=== PATIENT | female | born 1990 | race Caucasian/White ===

== ENCOUNTER 2018-09-21 14:22 | Emergency (ER) | payer SELFPAY ==
[~2018-09-21] VITALS: Ht 175.3 cm; Wt 60.8 kg
--- NOTE | 2018-09-21 14:34 | NUR ---
Pt came in from home, walked in due to right arm numbness since this morning. Hx of stroke Jun 2017 and SZ since jul 2018. Pt is able to raise bilateral arm and able to smile symmetry. AOx4, VSS at this time. Monitor attached. Will cont to monitor.
--- NOTE | 2018-09-21 14:34 | NUR ---
ED Nurse Note: Pt had a syncopal episode this morning, no head trauma, ERMD aware.
[2018-09-21 14:39] VITALS: BP 130/84
[2018-09-21] MEDS ORDERED: Sodium Chloride 500ML 500 ML IV ONE (15:09)
[2018-09-21] MEDS ORDERED: MELATONIN10 M4 PO (15:11)
[2018-09-21] MEDS ORDERED: BUSPAR10 MG ORAL (15:11)
[2018-09-21] MEDS ORDERED: KEPPRA1000 MG ORAL (15:11)
[2018-09-21] MEDS ORDERED: ASPIR 8181 MG ORAL (15:11)
[2018-09-21] MEDS ORDERED: ABILIFY10 MG ORAL (15:11)
[2018-09-21] MEDS ORDERED: TRAZODONE HCL150 MG ORAL (15:11)
[2018-09-21] MEDS ORDERED: VISTARIL25 M1 PO (15:11)
[2018-09-21] MEDS ORDERED: SERTRALINE HCL100 MG PO (15:11)
[2018-09-21] MEDS ORDERED: FOLIC ACID1 M1 PO (15:11)
--- NOTE | 2018-09-21 15:26 | NUR ---
ED Nurse Note: Blood drawn and sent to lab.
[2018-09-21 15:33] LABS: BASOPHILS % (AUTO) 2.2 % (0.0-2.0); EOSINOPHILS % (AUTO) 0.6 % (0.0-3.0); HEMATOCRIT 38.6 % (37.0-47.0); HEMOGLOBIN 13.1 G/DL (12.0-16.0); LYMPHOCYTES % (AUTO) 33.7 % (20.0-45.0); MEAN CORPUSCULAR VOLUME 92 FL (80-99); MONOCYTES % (AUTO) 14.8 % (1.0-10.0); NEUTROPHILS % (AUTO) 48.7 % (45.0-75.0); PLATELET COUNT 149 K/UL (150-450); RED BLOOD COUNT 4.18 M/UL (4.20-5.40); RED CELL DISTRIBUTION WIDTH 11.2 % (11.6-14.8); WHITE BLOOD COUNT 3.8 K/UL (4.8-10.8)
[2018-09-21 15:48] LABS: ANION GAP 13 mmol/L (5-15); BLOOD UREA NITROGEN 10 mg/dL (7-18); CALCIUM 8.7 MG/DL (8.5-10.1); CARBON DIOXIDE 22 MMOL/L (21-32); CHLORIDE 104 MMOL/L (98-107); CREATININE 0.8 MG/DL (0.55-1.30); POTASSIUM 3.8 MMOL/L (3.5-5.1); SODIUM 139 MMOL/L (136-145)
--- NOTE | 2018-09-21 15:48 | Emergency Room Report ---
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 Allergies: Coded Allergies: SULFAMETHOXAZOLE (Verified Allergy, Unknown, Hives, 09/21/18) TRIMETHOPRIM (Verified Allergy, Unknown, Hives, 09/21/18) Patient History Past Medical History: see triage record Pertinent Family History: none Reviewed Nursing Documentation: PMH: Agreed; PSxH: Agreed Nursing Documentation-PMH Past Medical History: No History, Except For Hx Cerebrovascular Accident: Yes - Jun 2017 Hx Seizures: Yes - Jul 2018 Review of Systems All Other Systems: negative except mentioned in HPI Physical Exam Vital Signs Date Time Temp Pulse Resp B/P (MAP) Pulse Ox O2 Delivery O2 Flow Rate FiO2 09/21/18 14:28 98.2 98 13 130/84 100 Room Air Sp02 EP Interpretation: reviewed, normal General Appearance: no apparent distress Head: normocephalic, atraumatic Eyes: bilateral eye PERRL, bilateral eye EOMI ENT: normal pharynx, no angioedema Neck: supple Respiratory: lungs clear Cardiovascular #1: regular rate, rhythm, no edema Gastrointestinal: non tender, soft Musculoskeletal: other - Contracted right hand, decreased movement of the right side Neurologic: alert, oriented x3, responsive Skin: normal color Lymphatic: no adenopathy Medical Decision Making Diagnostic Impression: Primary Impression: Syncope Additional Impression: QT prolongation ER Course Given the patient's history and presentation multiple differentials are considered EKG shows a mildly prolonged QT Given the patient's medications this is concerning for possible effect on this Also given the patient's syncopal episode described During her visit patient remains awake and alert Remains hemodynamically stable Patient requires improved outpatient care Reports that she is from [place] and is at a rehabilitation facility Further outpatient referrals are made and patient will return with any changes Labs Test 09/21/18 14:30 White Blood Count 3.8 K/UL (4.8-10.8) Red Blood Count 4.18 M/UL (4.20-5.40) Hemoglobin 13.1 G/DL (12.0-16.0) Hematocrit 38.6 % (37.0-47.0) Mean Corpuscular Volume 92 FL (80-99) Mean Corpuscular Hemoglobin 31.4 PG (27.0-31.0) Mean Corpuscular Hemoglobin Concent 34.0 G/DL (32.0-36.0) Red Cell Distribution Width 11.2 % (11.6-14.8) Platelet Count 149 K/UL (150-450) Mean Platelet Volume 8.3 FL (6.5-10.1) Neutrophils (%) (Auto) 48.7 % (45.0-75.0) Lymphocytes (%) (Auto) 33.7 % (20.0-45.0) Monocytes (%) (Auto) 14.8 % (1.0-10.0) Eosinophils (%) (Auto) 0.6 % (0.0-3.0) Basophils (%) (Auto) 2.2 % (0.0-2.0) Sodium Level 139 MMOL/L (136-145) Potassium Level 3.8 MMOL/L (3.5-5.1) Chloride Level 104 MMOL/L (98-107) Carbon Dioxide Level 22 MMOL/L (21-32) Anion Gap 13 mmol/L (5-15) Blood Urea Nitrogen 10 mg/dL (7-18) Creatinine 0.8 MG/DL (0.55-1.30) Estimat Glomerular Filtration Rate > 60 mL/min (>60) Glucose Level 91 MG/DL (74-106) Calcium Level 8.7 MG/DL (8.5-10.1) Total Bilirubin 0.3 MG/DL (0.2-1.0) Aspartate Amino Transf (AST/SGOT) 24 U/L (15-37) Alanine Aminotransferase (ALT/SGPT) 24 U/L (12-78) Alkaline Phosphatase 63 U/L (46-116) Total Creatine Kinase 91 U/L (26-308) Creatine Kinase MB 0.6 NG/ML (0.0-3.6) Creatine Kinase MB Relative Index 0.6 Total Protein 7.3 G/DL (6.4-8.2) Albumin 4.0 G/DL (3.4-5.0) Globulin 3.3 g/dL Albumin/Globulin Ratio 1.2 (1.0-2.7) EKG Diagnostic Results Rate: normal Rhythm: NSR ST Segments: other - Elongated QT corrected Rhythm Strip Diag. Results EP Interpretation: yes Rate: 66 Rhythm: NSR, no PVC's, no ectopy Last Vital Signs Date Time Temp Pulse Resp B/P (MAP) Pulse Ox O2 Delivery O2 Flow Rate FiO2 09/21/18 14:39 98 13 Room Air 09/21/18 14:39 98.2 130/84 100 Status: improved Disposition: HOME, SELF-CARE Condition: Improved Additional Instructions: Patient is provided with the discharge instructions notified to follow up with primary doctor in the next 2-3 days otherwise return to the er with any worsening symptoms. Please note that this report is being documented using [employer] technology. This can lead to erroneous entry secondary to incorrect interpretation by the dictating instrument. Daphne Elliott DO Sep 21, 2018 15:48
[2018-09-21 16:02] LABS: ALANINE AMINOTRANSFERASE 24 U/L (12-78); ALBUMIN/GLOBULIN RATIO 1.2 (1.0-2.7); ALKALINE PHOSPHATASE 63 U/L (46-116); ASPARTATE AMINO TRANSFERASE 24 U/L (15-37); BILIRUBIN,TOTAL 0.3 MG/DL (0.2-1.0); CKMB 0.6 NG/ML (0.0-3.6); CREATINE KINASE 91 U/L (26-308)
[2018-09-21 16:11] VITALS: BP 129/79
[2018-09-21 17:27] VITALS: BP 125/76
--- NOTE | 2018-09-21 17:29 | NUR ---
ED Nurse Note: Pt is clear to be discharged by ERMD. Discharge paper given, pt verbalized understanding of discharge instruction. AOx4, VSS. Wristband and IV line removed. Pt ambulated out with steady gait with all belongings.
[2018-09-21 17:30] VITALS: BP 125/76
== END 2018-09-21 17:30 | disposition home or self-care (01) ==
LOC: EMR 15:46
DX: R55 Syncope and collapse (principal); I45.81 Long QT syndrome; Z86.73 Personal history of transient ischemic attack (TIA), and cerebral infarction without residual deficits; Z86.69 Personal history of other diseases of the nervous system and sense organs; Z88.2 Allergy status to sulfonamides
CPT/HCPCS: 36415; 80053; 82550; 82553; 85025; 93005; 99284

== ENCOUNTER 2018-10-07 12:44 | Inpatient (IN) | payer SELFPAY ==
[~2018-10-07] VITALS: Ht 175.3 cm; Wt 63.5 kg
[~2018-10-07 12:44] MED LIST: ABILIFY10 MG ORAL; ASPIR 8181 MG ORAL; BUSPAR10 MG ORAL; FOLIC ACID1 M1 PO; KEPPRA1000 MG ORAL; MELATONIN10 M4 PO; SERTRALINE HCL100 MG PO; TRAZODONE HCL150 MG ORAL; VISTARIL25 M1 PO
--- NOTE | 2018-10-07 12:51 | NUR ---
ED Nurse Note: patient came in by walking, c/o chest pain and palptation since this morning. patient reports that she is in rehab program "breathe" ambulatory steady gait, patient attached to the monitor.
[2018-10-07 13:23] VITALS: BP 113/85
[2018-10-07 13:35] LABS: APPEARANCE,URINE CLEAR; BILIRUBIN, URINE NEGATIVE (NEGATIVE); COLOR,URINE PALE YELLOW; GLUCOSE, URINE (UA) NEGATIVE (NEGATIVE); KETONES,URINE NEGATIVE (NEGATIVE); LEUKOCYTE ESTERASE ,URINE 1+ (NEGATIVE); NITRITE,URINE NEGATIVE (NEGATIVE); PH,URINE 7 (4.5-8.0); PROTEIN,URINE NEGATIVE (NEGATIVE); UROBILINOGEN,URINE NORMAL MG/DL (0.0-1.0)
[2018-10-07 13:40] LABS: BASOPHILS % (AUTO) 1.4 % (0.0-2.0); EOSINOPHILS % (AUTO) 1.9 % (0.0-3.0); HEMATOCRIT 41.9 % (37.0-47.0); LYMPHOCYTES % (AUTO) 26.7 % (20.0-45.0); MEAN CORPUSCULAR VOLUME 93 FL (80-99); NEUTROPHILS % (AUTO) 65.1 % (45.0-75.0); PLATELET COUNT 357 K/UL (150-450); RED BLOOD COUNT 4.53 M/UL (4.20-5.40); WHITE BLOOD COUNT 7.6 K/UL (4.8-10.8)
[2018-10-07 13:45] LABS: ANION GAP 9 mmol/L (5-15); BLOOD UREA NITROGEN 15 mg/dL (7-18); CALCIUM 9.3 MG/DL (8.5-10.1); CARBON DIOXIDE 29 MMOL/L (21-32); CHLORIDE 102 MMOL/L (98-107); CREATININE 0.7 MG/DL (0.55-1.30); POTASSIUM 3.8 MMOL/L (3.5-5.1); SODIUM 140 MMOL/L (136-145)
[2018-10-07 14:01] LABS: ALANINE AMINOTRANSFERASE 46 U/L (12-78); ALBUMIN 4.4 G/DL (3.4-5.0); ALBUMIN/GLOBULIN RATIO 1.4 (1.0-2.7); ALKALINE PHOSPHATASE 71 U/L (46-116); ASPARTATE AMINO TRANSFERASE 25 U/L (15-37); BILIRUBIN,TOTAL 0.2 MG/DL (0.2-1.0); CKMB 1.1 NG/ML (0.0-3.6); CREATINE KINASE 73 U/L (26-308)
--- NOTE | 2018-10-07 14:26 | Emergency Room Report ---
History of Present Illness General Chief Complaint: Chest Pain Source: Patient, Medical Record Present Illness HPI 28-year-old female presents ED for evaluation. Patient states that this morning she experienced her heart racing with some chest pressure. Started this morning. Comes and goes lasting for a few seconds. States she noticed some pressure to the middle of her chest at this time. Denies any shortness of breath. Denies pain. Denies drug use. States she is here in [place] at a alcohol rehabilitation facility. States she has history of anxiety. States that she does have history of CVA because of a PFO. States that was repaired in [facility]. Does not have a PMD here. No other aggravating relieving factors. Denies any other associated symptoms Allergies: Coded Allergies: SULFAMETHOXAZOLE (Verified Allergy, Unknown, Hives, 09/21/18) TRIMETHOPRIM (Verified Allergy, Unknown, Hives, 09/21/18) Patient History Past Medical History: CVA/TIA, seizures, psych hx Past Surgical History: other - PFO Pertinent Family History: none Social History: Denies: smoking, alcohol use, drug use Last Menstrual Period: IUD Now: No Immunizations: UTD Reviewed Nursing Documentation: PMH: Agreed; PSxH: Agreed Nursing Documentation-PMH Past Medical History: No History, Except For Hx Cardiac Problems: Yes - valve replacement 2018 History Of Psychiatric Problem: No - eating disorder, alcohol abuse Hx Cerebrovascular Accident: Yes - Jun 2017 Hx Seizures: Yes - Jul 2018 Review of Systems All Other Systems: negative except mentioned in HPI Physical Exam Vital Signs Date Time Temp Pulse Resp B/P (MAP) Pulse Ox O2 Delivery O2 Flow Rate FiO2 10/07/18 12:45 98.2 94 18 113/85 96 Room Air Sp02 EP Interpretation: reviewed, normal General Appearance: alert, GCS 15, non-toxic, thin Head: normocephalic, atraumatic Eyes: bilateral eye normal inspection, bilateral eye PERRL ENT: hearing grossly normal, normal pharynx, no angioedema, normal voice Neck: full range of motion, supple/symm/no masses Respiratory: chest non-tender, lungs clear, normal breath sounds, speaking full sentences Cardiovascular #1: regular rate, rhythm, no edema Cardiovascular #2: 2+ carotid (R), 2+ carotid (L), 2+ radial (R), 2+ radial (L) , 2+ dorsalis pedis (R), 2+ dorsalis pedis (L) Gastrointestinal: normal bowel sounds, non tender, soft, non-distended, no guarding, no rebound Rectal: deferred Genitourinary: normal inspection, no CVA tenderness Musculoskeletal: back normal, gait/station normal, normal range of motion, non- tender Neurologic: alert, oriented x3, responsive, motor strength/tone normal, sensory intact, speech normal Psychiatric: judgement/insight normal, memory normal, no suicidal/homicidal ideation, anxious Reflexes: 3+ bicep (R), 3+ bicep (L), 3+ tricep (R), 3+ tricep (L), 3+ knee (R) , 3+ knee (L) Skin: normal color, no rash, warm/dry, well hydrated Lymphatic: no adenopathy Medical Decision Making Diagnostic Impression: Primary Impression: ACS (acute coronary syndrome) Additional Impression: Palpitations ER Course Hospital Course 28 yo F presents with episode of palpitations, chest pain since this morning Differential diagnoses include: MN/unstable angina, contusion, muscle strain, PTX, rib fracture Clinical course Patient placed on stretcher. on secured entrance monitor. After initial history and physical I ordered labs, EKG, chest x-ray labs reviewed- no leukocytosis, hb/hct stable, electrolytes ok, trop 0.029 EKG - NSR, no acute ischemic changes interpreted by me Chest x-ray- no acute process Discussed with patient. Given history of CVA and PFO patient would benefit from observation and serial troponins. Aspirin given Case discussed with Dr. Sánchez and he agreed to accept the patient to his service for further care and support I. I feel this is a highly complex case requiring extensive working including EKG/Rhythm strip, Xray/CT/US, Blood/urine lab work, repeat exams while in ED, and administration of strong opiates/narcotics for pain control, admission to hospital or close patient follow up. Diagnosis - ACS, palpitations admitted to telemetry in serious condition Labs Test 10/07/18 13:18 White Blood Count 7.6 K/UL (4.8-10.8) Red Blood Count 4.53 M/UL (4.20-5.40) Hemoglobin 14.0 G/DL (12.0-16.0) Hematocrit 41.9 % (37.0-47.0) Mean Corpuscular Volume 93 FL (80-99) Mean Corpuscular Hemoglobin 31.0 PG (27.0-31.0) Mean Corpuscular Hemoglobin Concent 33.4 G/DL (32.0-36.0) Red Cell Distribution Width 11.0 % (11.6-14.8) Platelet Count 357 K/UL (150-450) Mean Platelet Volume 7.3 FL (6.5-10.1) Neutrophils (%) (Auto) 65.1 % (45.0-75.0) Lymphocytes (%) (Auto) 26.7 % (20.0-45.0) Monocytes (%) (Auto) 5.0 % (1.0-10.0) Eosinophils (%) (Auto) 1.9 % (0.0-3.0) Basophils (%) (Auto) 1.4 % (0.0-2.0) Urine Color Pale yellow Urine Appearance Clear Urine pH 7 (4.5-8.0) Urine Specific [place] 1.010 (1.005-1.035) Urine Protein Negative (NEGATIVE) Urine Glucose (UA) Negative (NEGATIVE) Urine Ketones Negative (NEGATIVE) Urine Blood Negative (NEGATIVE) Urine Nitrite Negative (NEGATIVE) Urine Bilirubin Negative (NEGATIVE) Urine Urobilinogen Normal MG/DL (0.0-1.0) Urine Leukocyte Esterase 1+ (NEGATIVE) Urine RBC 0-2 /HPF (0 - 2) Urine WBC 2-4 /HPF (0 - 2) Urine Squamous Epithelial Cells Occasional /LPF Urine Bacteria Few /HPF (NONE) Urine HCG, Qualitative Negative (NEGATIVE) Sodium Level 140 MMOL/L (136-145) Potassium Level 3.8 MMOL/L (3.5-5.1) Chloride Level 102 MMOL/L (98-107) Carbon Dioxide Level 29 MMOL/L (21-32) Anion Gap 9 mmol/L (5-15) Blood Urea Nitrogen 15 mg/dL (7-18) Creatinine 0.7 MG/DL (0.55-1.30) Estimat Glomerular Filtration Rate > 60 mL/min (>60) Glucose Level 88 MG/DL (74-106) Calcium Level 9.3 MG/DL (8.5-10.1) Total Bilirubin 0.2 MG/DL (0.2-1.0) Aspartate Amino Transf (AST/SGOT) 25 U/L (15-37) Alanine Aminotransferase (ALT/SGPT) 46 U/L (12-78) Alkaline Phosphatase 71 U/L (46-116) Total Creatine Kinase 73 U/L (26-308) Creatine Kinase MB 1.1 NG/ML (0.0-3.6) Creatine Kinase MB Relative Index 1.5 Troponin I 0.029 ng/mL (0.000-0.056) Total Protein 7.6 G/DL (6.4-8.2) Albumin 4.4 G/DL (3.4-5.0) Globulin 3.2 g/dL Albumin/Globulin Ratio 1.4 (1.0-2.7) Urine Opiates Screen Negative (NEGATIVE) Urine Barbiturates Screen Negative (NEGATIVE) Phencyclidine (PCP) Screen Negative (NEGATIVE) Urine Amphetamines Screen Negative (NEGATIVE) Urine Benzodiazepines Screen Negative (NEGATIVE) Urine Cocaine Screen Negative (NEGATIVE) Urine Marijuana (THC) Screen Negative (NEGATIVE) EKG Diagnostic Results Rate: normal Rhythm: NSR ST Segments: no acute changes ASA given to the pt in ED: Yes Rhythm Strip Diag. Results EP Interpretation: yes Rhythm: NSR, no PVC's, no ectopy Chest X-Ray Diagnostic Results Chest X-Ray Diagnostic Results : Chest X-Ray Ordered: Yes # of Views/Limited/Complete: 1 View Indication: Chest Pain EP Interpretation: Yes Interpretation: no consolidation, no effusion, no pneumothorax, no acute cardiopulmonary disease Impression: No acute disease Electronically Signed by: Electronically signed by Bryan Perez MD Last Vital Signs Date Time Temp Pulse Resp B/P (MAP) Pulse Ox O2 Delivery O2 Flow Rate FiO2 10/07/18 13:24 94 18 Room Air 10/07/18 13:23 98.2 113/85 96 Status: improved Disposition: ADMITTED INPATIENT Condition: Serious Referrals: NOT CHOSEN IPA/,REFERRING (PCP) Bryan Perez MD Oct 07, 2018 14:26
--- NOTE | 2018-10-07 15:19 | Diagnostic Imaging Report ---
Indication: Chest pain Comparison: None A single view chest radiograph was obtained. Findings: Cardiac silhouette is enlarged. The lungs are clear but hypoinflated and the not optimally evaluated. Pulmonary vascularity is appropriate. The diaphragmatic contour is smooth and costophrenic angles are sharp. No pleural effusions are identified. The bones are unremarkable. Impression: No acute findings
[2018-10-07] MEDS ORDERED: LORazepam 1mg tab ORAL ONE (15:30)
--- NOTE | 2018-10-07 16:15 | NUR ---
ED Nurse Note: report given to CRISTIANO Smith
--- NOTE | 2018-10-07 16:44 | NUR ---
ED Nurse Note: patient transferred to 207-1, hand off given to cher CERVANTES.
--- NOTE | 2018-10-07 16:50 | NUR ---
NURSE NOTES: Patient came in via gurney from ER. Walked to the bed with steady gate. multifocal button generator applied, gown changed non skid socks applied. Patient In RA. Denies any SOB or pain. Belongings checked signed and filed. Patient's VS stable. Bed on lowest position, side rails up x2, brakes engaged. Call light within easy reach. Seizure precaution in place.
[2018-10-07 17:00] VITALS: BP 122/83
[2018-10-07] MEDS ORDERED: LORazepam Inj 2mg/ml 1ml IV PRN (17:45)
[2018-10-07] MEDS ORDERED: Nitroglycerin Subl 0.4mg tab SL PRN (18:30)
--- NOTE | 2018-10-07 19:45 | NUR ---
HAND-OFF: Report given to HELEN Romano. Patient in stable conditon. Plan of care endorsed.
--- NOTE | 2018-10-07 19:51 | NUR ---
NURSE NOTES: Called Dr. Sánchez regarding patient's request for Miralax, Nicotine patch, and for her Ativan dose to be increased to 1mg IV. Received new orders. Noted and carried out.
--- NOTE | 2018-10-07 19:53 | NUR ---
NURSE NOTES: Received report from HELEN Contreras. Patient is awake lying semi-soto's; resting comfortably. No signs of acute distress noted; complains of some pain. AOx4; able to make needs known. Ambulates independently. Checked IV site; patent and flushed. No erythema, bleeding, or infiltration noted. Bed at lowest position, brakes on, siderails up x2. Call light within reach. Will continue to monitor.
[2018-10-07 20:00] VITALS: BP 123/79
--- NOTE | 2018-10-07 20:10 | Cardiology Progress Note ---
Assessment/Plan Assessment/Plan The patient is seen and examined, full consult note will be dictated shortly. Objective Last 24 Hour Vital Signs Date Time Temp Pulse Resp B/P (MAP) Pulse Ox O2 Delivery O2 Flow Rate FiO2 10/07/18 17:00 97.5 90 18 122/83 (96) 99 10/07/18 16:17 98.2 88 18 113/85 96 Room Air 10/07/18 13:24 94 18 Room Air 10/07/18 13:23 98.2 88 18 113/85 96 Room Air 10/07/18 12:45 98.2 94 18 113/85 96 Room Air Laboratory Tests Test 10/07/18 13:18 White Blood Count 7.6 K/UL (4.8-10.8) Red Blood Count 4.53 M/UL (4.20-5.40) Hemoglobin 14.0 G/DL (12.0-16.0) Hematocrit 41.9 % (37.0-47.0) Mean Corpuscular Volume 93 FL (80-99) Mean Corpuscular Hemoglobin 31.0 PG (27.0-31.0) Mean Corpuscular Hemoglobin Concent 33.4 G/DL (32.0-36.0) Red Cell Distribution Width 11.0 % (11.6-14.8) L Platelet Count 357 K/UL (150-450) Mean Platelet Volume 7.3 FL (6.5-10.1) Neutrophils (%) (Auto) 65.1 % (45.0-75.0) Lymphocytes (%) (Auto) 26.7 % (20.0-45.0) Monocytes (%) (Auto) 5.0 % (1.0-10.0) Eosinophils (%) (Auto) 1.9 % (0.0-3.0) Basophils (%) (Auto) 1.4 % (0.0-2.0) Urine Color Pale yellow Urine Appearance Clear Urine pH 7 (4.5-8.0) Urine Specific [place] 1.010 (1.005-1.035) Urine Protein Negative (NEGATIVE) Urine Glucose (UA) Negative (NEGATIVE) Urine Ketones Negative (NEGATIVE) Urine Blood Negative (NEGATIVE) Urine Nitrite Negative (NEGATIVE) Urine Bilirubin Negative (NEGATIVE) Urine Urobilinogen Normal MG/DL (0.0-1.0) Urine Leukocyte Esterase 1+ (NEGATIVE) H Urine RBC 0-2 /HPF (0 - 2) Urine WBC 2-4 /HPF (0 - 2) Urine Squamous Epithelial Cells Occasional /LPF Urine Bacteria Few /HPF (NONE) Urine HCG, Qualitative Negative (NEGATIVE) Sodium Level 140 MMOL/L (136-145) Potassium Level 3.8 MMOL/L (3.5-5.1) Chloride Level 102 MMOL/L (98-107) Carbon Dioxide Level 29 MMOL/L (21-32) Anion Gap 9 mmol/L (5-15) Blood Urea Nitrogen 15 mg/dL (7-18) Creatinine 0.7 MG/DL (0.55-1.30) Estimat Glomerular Filtration Rate > 60 mL/min (>60) Glucose Level 88 MG/DL (74-106) Hemoglobin A1c 5.7 % (4.3-6.0) Calcium Level 9.3 MG/DL (8.5-10.1) Total Bilirubin 0.2 MG/DL (0.2-1.0) Aspartate Amino Transf (AST/SGOT) 25 U/L (15-37) Alanine Aminotransferase (ALT/SGPT) 46 U/L (12-78) Alkaline Phosphatase 71 U/L (46-116) Total Creatine Kinase 73 U/L (26-308) Creatine Kinase MB 1.1 NG/ML (0.0-3.6) Creatine Kinase MB Relative Index 1.5 Troponin I 0.029 ng/mL (0.000-0.056) Total Protein 7.6 G/DL (6.4-8.2) Albumin 4.4 G/DL (3.4-5.0) Globulin 3.2 g/dL Albumin/Globulin Ratio 1.4 (1.0-2.7) Urine Opiates Screen Negative (NEGATIVE) Urine Barbiturates Screen Negative (NEGATIVE) Phencyclidine (PCP) Screen Negative (NEGATIVE) Urine Amphetamines Screen Negative (NEGATIVE) Urine Benzodiazepines Screen Negative (NEGATIVE) Urine Cocaine Screen Negative (NEGATIVE) Urine Marijuana (THC) Screen Negative (NEGATIVE) Shekhar Jones MD Oct 07, 2018 20:10
[2018-10-07] MEDS: BusPIRone 10mg Tab ORAL SCH (20:21)
[2018-10-07] MEDS: Miralax 17gm pkt ORAL SCH (20:22)
[2018-10-07] MEDS ORDERED: MELATONIN3 M2 PO (20:31)
[2018-10-07] MEDS ORDERED: TraZODone 100mg tab ORAL SCH (21:00)
[2018-10-07] MEDS: LORazepam Inj 2mg/ml 1ml IV PRN (21:12)
[2018-10-08] MEDS: LORazepam Inj 2mg/ml 1ml IV PRN ×4 (03:16→22:07)
--- NOTE | 2018-10-08 03:25 | NUR ---
NURSE NOTES: Patient is awake lying semi-soto's complaining of anxiety. Ativan 1mg IV administered as needed. Will continue to monitor.
[2018-10-08 04:00] VITALS: BP 101/51
[2018-10-08 07:03] LABS: EOSINOPHILS % (AUTO) 3.6 % (0.0-3.0); HEMOGLOBIN 12.9 G/DL (12.0-16.0); LYMPHOCYTES % (AUTO) 34.4 % (20.0-45.0); MEAN CORPUSCULAR VOLUME 92 FL (80-99); PLATELET COUNT 298 K/UL (150-450); RED BLOOD COUNT 4.13 M/UL (4.20-5.40); RED CELL DISTRIBUTION WIDTH 11.1 % (11.6-14.8); WHITE BLOOD COUNT 5.8 K/UL (4.8-10.8)
--- NOTE | 2018-10-08 07:12 | NUR ---
HAND-OFF: Report given to HELEN Contreras. Patient is awake lying semi-soto's; resting comfortably. In stable condition.
--- NOTE | 2018-10-08 07:12 | NUR ---
NURSE NOTES: Report received from HELEN Romano. Patient AOx4. In 2L NC. Denies any SOB or pain. IV patent, flushed and SL. Patient asking for Ativan at this time. Explanation given about next dose. Bed on lowest position, brakes engaged, side rails upx2. Call light within easy reach.
[2018-10-08 07:15] LABS: ANION GAP 8 mmol/L (5-15); BLOOD UREA NITROGEN 15 mg/dL (7-18); CALCIUM 9.2 MG/DL (8.5-10.1); CARBON DIOXIDE 27 MMOL/L (21-32); CHLORIDE 106 MMOL/L (98-107); CHOLESTEROL 132 MG/DL (< 200); CREATININE 0.8 MG/DL (0.55-1.30); HDL CHOLESTEROL 56 MG/DL (40-60); POTASSIUM 4.1 MMOL/L (3.5-5.1); SODIUM 141 MMOL/L (136-145); TRIGLYCERIDES 40 MG/DL (30-150)
[2018-10-08 08:00] VITALS: BP 117/83
[2018-10-08] MEDS: BusPIRone 10mg Tab ORAL SCH ×3 (08:40→17:29)
[2018-10-08] MEDS: Miralax 17gm pkt ORAL SCH ×2 (08:41→17:30)
[2018-10-08] MEDS ORDERED: Sertraline 100mg tab ORAL SCH (09:00)
[2018-10-08] MEDS ORDERED: Aspirin EC 81mg tab ORAL SCH (09:00)
[2018-10-08] MEDS ORDERED: ARIPiprazole 10mg tab ORAL SCH (09:00)
--- NOTE | 2018-10-08 10:40 | NUR ---
TRANSFER TO FLOOR: Patient transferred to [facility] floor room 421-1, per Dr. Sánchez. VS stable. Patient has no complaints of pain or SOB. Belongings checked with Didi QUINONEZ. Report given to FABRICIO Tolbert. Belongings and medications given to FABRICIO Tolbert. Patient informed family of transfer.
[2018-10-08] MEDS ORDERED: Nitroglycerin Subl 0.4mg tab SL PRN (10:45)
--- NOTE | 2018-10-08 10:51 | NUR ---
CASE MANAGEMENT:REVIEW FROM HOME TO ER CC: CHEST PAIN SI: ACS. PALPITATIONS 98.2 94 18 113/85 96% ON RA TROPONIN(-) IS: 1L NS BOLUS ASA PO ATIVAN PO IV ATIVAN CXR : TO TELEMETRY PLAN: 2DECHO
--- NOTE | 2018-10-08 10:54 | NUR ---
NURSE NOTES: received pt from Jeb Contreras with stable condition. pt is a/ox4, breathing regular and unlabored. denies any pain .vss. will continue to monitor
--- NOTE | 2018-10-08 11:02 | NUR ---
INTERQUAL CRITERIA MET FOR OBSERVATION Addendum: 10/08/18 at 1103 by BOBBI MARRERO LVN LVN MESSAGE LEFT FOR DR PÉREZ REGARDING DISCHARGE
[2018-10-08 12:00] VITALS: BP 120/85
[2018-10-08] MEDS ORDERED: BusPIRone 10mg Tab ORAL SCH (13:00)
[2018-10-08] MEDS ORDERED: BusPIRone 5mg Tab ORAL SCH ×2 (14:10→18:00)
[2018-10-08] MEDS: Milk of Magnesia 30ml Ud ORAL PRN (14:23)
--- NOTE | 2018-10-08 14:39 | History & Physical ---
History and Physical History & Physicial patient seen and examined. Full Dictation completed Andrés Sánchez MD Oct 08, 2018 14:39
[2018-10-08 16:00] VITALS: BP 121/86
--- NOTE | 2018-10-08 19:13 | NUR ---
HAND-OFF: Report given to HELEN Ng.
--- NOTE | 2018-10-08 19:40 | NUR ---
NURSE NOTES: Received report from Mary Sneed RN. Patient A&Ox4. Anxious demeanor. In bed. Currently on room air, has PRN nasal cannula. No signs of distress or labored breathing. IV intact, patent, and saline locked. Bed in lowest position with call light in reach. Will continue to monitor.
[2018-10-08 20:00] VITALS: BP 124/74
[2018-10-08] MEDS ORDERED: TraZODone 100mg tab ORAL SCH (21:00)
--- NOTE | 2018-10-08 21:45 | History and Physical Report ---
DATE OF ADMISSION: 10/07/2018 SOURCE OF INFORMATION: The patient and EMR. HISTORY OF PRESENT ILLNESS: The patient is a 28-year-old female, complaining of the pain all over the chest wall. Pain is constant. The patient reported pain gets worse by taking deep breath. The patient gives prior history of cardiac disease and stroke in the past. At the time of evaluation, the patient denies any nausea, vomiting, diarrhea, or constipation. 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 MEDICATIONS: Current hospital medications including, but not limited to Abilify, aspirin, BuSpar, and Keppra. ALLERGIES: Sulfa, trimethoprim. FAMILY HISTORY: Noncontributory. SOCIAL HISTORY: The patient denies history of illicit drug abuse, smoking, or alcohol abuse. The patient works from the [employer] secondary to desire to participate in the counseling group for the eating disorder. Tobacco use on a daily basis. PHYSICAL EXAMINATION: VITAL SIGNS: Blood pressure 130/80, temperature 98.2, pulse oximetry 98% on room air, and respiratory rate 18. HEAD AND NECK: Atraumatic and normocephalic. CHEST: Clear to auscultation. HEART: S1 and S2. Regular rate and rhythm. MUSCULOSKELETAL: Positive for plegia and paralysis of the right upper extremity. NEUROLOGIC: The patient is awake, alert, and oriented x3. LABORATORY DATA: Dated 10/07/2018 shows WBC 7.6, hemoglobin 14, and platelet count 367,000. Sodium 140, potassium 3.8, BUN 16, creatinine 0.7, and TSH of 0.3. A/P: 1- Chest pain 2- PFO 3- CVA 4- GI-DVT prophylaxia IMAGING: Chest x-ray dated 10/07/2018 shows no acute distress. PLAN OF CARE: Given the fact that the patient has a prior history of cardiac disease, we will obtain a obtain a 2D echo. We will check serial troponin levels once cleared. The patient to follow up as an outpatient. Andrés Sánchez M.D. DR: JANELL JOB#: [id number] CC: [id number]
--- NOTE | 2018-10-08 23:41 | Consultation ---
History of Present Illness General Chief Complaint: Chest Pain Present Illness HPI 28-year-old female, complaining of the pain all over the chest wall. the pt has hx of depression and anxiety and is on multiple psych meds. the pt is severely anxious and is demanding. the pt stated that the anxiety is too severe that she needs more antianxiety meds. Allergies: Coded Allergies: SULFAMETHOXAZOLE (Verified Allergy, Unknown, Hives, 09/21/18) TRIMETHOPRIM (Verified Allergy, Unknown, Hives, 09/21/18) Medication History Scheduled Aripiprazole* (Abilify*), 10 MG ORAL DAILY, (Reported) Aspirin* (Aspir 81*), 81 MG ORAL DAILY, (Reported) Buspirone Hcl* (Buspar*), 20 MG ORAL THREE TIMES A DAY, (Reported) Levetiracetam (Keppra), 1,000 MG ORAL BID, (Reported) Melatonin (Melatonin), 6 MG PO BEDTIME, (Reported) Sertraline Hcl* (Zoloft*), 200 MG PO DAILY, (Reported) Trazodone* (Trazodone*), 100 MG ORAL BEDTIME, (Reported) Scheduled PRN Hydroxyzine Pamoate (Vistaril), 25 MG PO for For Anxiety, (Reported) Miscellaneous Medications Folic Acid (Folic Acid), Unknown Dose PO, (Reported) Patient History History Provided By: Patient, Medical Record, PMD Healthcare decision maker Resuscitation status Full Code Advanced Directive on File No Past Medical/Surgical History Past Medical/Surgical History: (1) Syncope (2) QT prolongation (3) Palpitations (4) ACS (acute coronary syndrome) Review of Systems Psychiatric: Reports: anxiety, depressed feelings, emotional problems Physical Exam General Appearance: alert, severe distress Neurologic: oriented x 3, responsive, depressed affect Last 24 Hour Vital Signs Date Time Temp Pulse Resp B/P (MAP) Pulse Ox O2 Delivery O2 Flow Rate FiO2 10/08/18 16:00 98.4 101 18 121/86 (98) 100 10/08/18 12:00 98.4 106 18 120/85 (97) 100 10/08/18 09:00 Room Air 10/08/18 08:00 97.9 107 20 117/83 (94) 97 10/08/18 08:00 117 10/08/18 04:00 84 10/08/18 04:00 98.6 84 18 101/51 (68) 99 10/08/18 00:00 81 Intake and Output 10/07/18 10/08/18 19:00 07:00 Intake Total 120 ml 500 ml Balance 120 ml 500 ml Intake Oral 120 ml 500 ml # Voids 1 3 Laboratory Tests Test 10/08/18 05:30 White Blood Count 5.8 K/UL (4.8-10.8) Red Blood Count 4.13 M/UL (4.20-5.40) L Hemoglobin 12.9 G/DL (12.0-16.0) Hematocrit 38.0 % (37.0-47.0) Mean Corpuscular Volume 92 FL (80-99) Mean Corpuscular Hemoglobin 31.1 PG (27.0-31.0) H Mean Corpuscular Hemoglobin Concent 33.8 G/DL (32.0-36.0) Red Cell Distribution Width 11.1 % (11.6-14.8) L Platelet Count 298 K/UL (150-450) Mean Platelet Volume 6.8 FL (6.5-10.1) Neutrophils (%) (Auto) 53.0 % (45.0-75.0) Lymphocytes (%) (Auto) 34.4 % (20.0-45.0) Monocytes (%) (Auto) 7.0 % (1.0-10.0) Eosinophils (%) (Auto) 3.6 % (0.0-3.0) H Basophils (%) (Auto) 2.0 % (0.0-2.0) Sodium Level 141 MMOL/L (136-145) Potassium Level 4.1 MMOL/L (3.5-5.1) Chloride Level 106 MMOL/L (98-107) Carbon Dioxide Level 27 MMOL/L (21-32) Anion Gap 8 mmol/L (5-15) Blood Urea Nitrogen 15 mg/dL (7-18) Creatinine 0.8 MG/DL (0.55-1.30) Estimat Glomerular Filtration Rate > 60 mL/min (>60) Glucose Level 86 MG/DL (74-106) Calcium Level 9.2 MG/DL (8.5-10.1) Troponin I 0.034 ng/mL (0.000-0.056) Triglycerides Level 40 MG/DL (30-150) Cholesterol Level 132 MG/DL (< 200) LDL Cholesterol 70 mg/dL (<100) HDL Cholesterol 56 MG/DL (40-60) Cholesterol/HDL Ratio 2.4 (3.3-4.4) L Thyroid Stimulating Hormone (TSH) 0.534 uiU/mL (0.358-3.740) Height (Feet): 5 Height (Inches): 9.00 Weight (Pounds): 140 Medications Current Medications Medications (Trade) Dose Ordered Sig/Chang Route PRN Reason Start Time Stop Time Status Last Admin Dose Admin Aripiprazole (Abilify) 10 mg DAILY ORAL 10/09/18 09:00 11/07/18 08:59 Aspirin (Ecotrin) 81 mg DAILY ORAL 10/09/18 09:00 11/07/18 08:59 Buspirone HCl (Buspar) 20 mg TID ORAL 10/08/18 14:11 11/07/18 14:09 10/08/18 17:29 Folic Acid (Folate) 1 mg DAILY ORAL 10/09/18 09:00 11/07/18 08:59 Levetiracetam (Keppra) 1,000 mg Q12HR ORAL 10/08/18 21:00 11/06/18 20:59 10/08/18 20:48 Lorazepam (Ativan 2mg/ml 1ml) 1 mg Q6H PRN IV For Anxiety 10/08/18 10:43 10/14/18 10:42 10/08/18 22:07 Magnesium Hydroxide (Mom) 30 ml DAILYPRN PRN ORAL Constipation 10/08/18 13:30 11/07/18 13:29 10/08/18 14:23 Nicotine (Nicoderm) 1 patch Q24H TDERMAL 10/08/18 21:00 11/06/18 20:59 10/08/18 20:48 Nitroglycerin (Ntg) 0.4 mg Q5M PRN SL Prn Chest Pain 10/08/18 10:45 11/06/18 18:29 Pantoprazole (Protonix) 40 mg ACBREAKFAST ORAL 10/09/18 06:30 11/07/18 06:29 Polyethylene Glycol (Miralax) 17 gm BID ORAL 10/08/18 18:00 11/06/18 20:29 10/08/18 17:30 Sertraline HCl (Zoloft) 200 mg DAILY ORAL 10/09/18 09:00 11/07/18 08:59 Trazodone HCl (Desyrel) 100 mg BEDTIME ORAL 10/08/18 21:00 11/06/18 20:59 10/08/18 20:48 Assessment/Plan Problem List: (1) MDD (major depressive disorder), recurrent episode ICD Codes: F33.9 - Major depressive disorder, recurrent, unspecified SNOMED: 268713497 (2) Anxiety disorder ICD Codes: F41.9 - Anxiety disorder, unspecified SNOMED: 947494682 Status: stable, progressing Assessment/Plan zoloft Dee Kirby MD Oct 08, 2018 23:41
[2018-10-09] VITALS: BP 97/51
[2018-10-09 04:00] VITALS: BP 116/76
[2018-10-09] MEDS: LORazepam Inj 2mg/ml 1ml IV PRN ×2 (04:05→10:50)
--- NOTE | 2018-10-09 07:13 | NUR ---
HAND-OFF: Report given to HELEN Pugh.
--- NOTE | 2018-10-09 07:55 | NUR ---
NURSE NOTES: Received patient on bed, awake. IV site intact and patent. Bed in low and locked position, call light within reach. No signs of respiratory distress or pain.Room board updated, will continue to monitor.
[2018-10-09 08:00] VITALS: BP 127/81
[2018-10-09] MEDS ORDERED: Sertraline 100mg tab ORAL SCH (09:00)
[2018-10-09] MEDS ORDERED: ARIPiprazole 10mg tab ORAL SCH (09:00)
[2018-10-09] MEDS ORDERED: Aspirin EC 81mg tab ORAL SCH (09:00)
--- NOTE | 2018-10-09 09:45 | NUR ---
NURSE NOTES: IV was dislodged and removed. Will attemp to start new IV site.
[2018-10-09] MEDS: Miralax 17gm pkt ORAL SCH ×2 (09:55→17:20)
[2018-10-09] MEDS: BusPIRone 10mg Tab ORAL SCH ×3 (09:56→17:21)
[2018-10-09 12:00] VITALS: BP 115/86
[2018-10-09] MEDS ORDERED: LORazepam 1mg tab ORAL PRN (13:00)
--- NOTE | 2018-10-09 13:06 | General Progress Note ---
Assessment/Plan Problem List: (1) MDD (major depressive disorder), recurrent episode ICD Codes: F33.9 - Major depressive disorder, recurrent, unspecified SNOMED: 017238815 (2) Anxiety disorder ICD Codes: F41.9 - Anxiety disorder, unspecified SNOMED: 428513569 Assessment/Plan Zoloft Abilify increased Ativan trazodone Subjective Neurologic/Psychiatric: Reports: anxiety, depressed, emotional problems Allergies: Coded Allergies: SULFAMETHOXAZOLE (Verified Allergy, Unknown, Hives, 09/21/18) TRIMETHOPRIM (Verified Allergy, Unknown, Hives, 09/21/18) Objective Last 24 Hour Vital Signs Date Time Temp Pulse Resp B/P (MAP) Pulse Ox O2 Delivery O2 Flow Rate FiO2 10/09/18 09:00 Room Air 10/09/18 08:00 97.4 101 18 127/81 (96) 100 10/09/18 04:00 97.7 94 18 116/76 (89) 98 10/09/18 00:00 97.7 97 18 97/51 (66) 98 10/08/18 21:00 Room Air 10/08/18 20:00 98.2 99 18 124/74 (91) 99 10/08/18 16:00 98.4 101 18 121/86 (98) 100 Intake and Output 10/08/18 10/09/18 18:59 06:59 Intake Total 840 ml 350 ml Balance 840 ml 350 ml Intake Oral 840 ml 350 ml # Voids 5 2 Height (Feet): 5 Height (Inches): 9.00 Weight (Pounds): 140 General Appearance: alert Neurologic: oriented x 3, responsive, depressed affect Dee Blankenship MD Oct 09, 2018 13:06
[2018-10-09] MEDS: Milk of Magnesia 30ml Ud ORAL PRN (15:18)
[2018-10-09 16:00] VITALS: BP 123/81
--- NOTE | 2018-10-09 16:20 | NUR ---
NURSE NOTES: Left message for MD Jones as MD Sánchez stated she is clear for discharge when cleared by cardio. Awaiting call back.
--- NOTE | 2018-10-09 16:22 | NUR ---
NURSE NOTES: MD Bolanos called back and stated that the patient is cleared from him. Will notify MD Sánchez. Charge nurse aware.
--- NOTE | 2018-10-09 16:44 | General Progress Note ---
Assessment/Plan Assessment/Plan S: I still have chest pain O: appears comfortable, good appetite. no limitation in activity PHYSICAL EXAMINATION: HEAD AND NECK: Atraumatic and normocephalic. CHEST: Clear to auscultation.HEART: S1 and S2. Regular rate and rhythm. MUSCULOSKELETAL: Positive for plegia and paralysis of the right upper extremity.NEUROLOGIC: The patient is awake, alert, and oriented x3. Meds: reviewed and reconciled A/P: 1- Chest pain 2- PFO 3- CVA 4- GI-DVT prophylaxis IMAGING: Chest x-ray dated 10/07/2018 shows no acute distress. Plan: Discussed with Cardiology. Cleared Medically to followup as out patient Subjective Allergies: Coded Allergies: SULFAMETHOXAZOLE (Verified Allergy, Unknown, Hives, 09/21/18) TRIMETHOPRIM (Verified Allergy, Unknown, Hives, 09/21/18) Objective Last 24 Hour Vital Signs Date Time Temp Pulse Resp B/P (MAP) Pulse Ox O2 Delivery O2 Flow Rate FiO2 10/09/18 16:00 98.6 97 18 123/81 (95) 99 10/09/18 12:00 98.6 95 18 115/86 (96) 99 10/09/18 09:00 Room Air 10/09/18 08:00 97.4 101 18 127/81 (96) 100 10/09/18 04:00 97.7 94 18 116/76 (89) 98 10/09/18 00:00 97.7 97 18 97/51 (66) 98 10/08/18 21:00 Room Air 10/08/18 20:00 98.2 99 18 124/74 (91) 99 Intake and Output 10/08/18 10/09/18 18:59 06:59 Intake Total 840 ml 350 ml Balance 840 ml 350 ml Intake Oral 840 ml 350 ml # Voids 5 2 Height (Feet): 5 Height (Inches): 9.00 Weight (Pounds): 140 Andrés Sánchez MD Oct 09, 2018 16:44
--- NOTE | 2018-10-09 18:42 | Cardiology Progress Note ---
Assessment/Plan Assessment/Plan 1. Non-cardiac chest pain, AMI ruled out, low likelihood of CAD in view of age and no CAD risk factors, no ischemic changes in the ECG. 2D echo reveals normal LV systolic fxn. 2. Hx of CVA due to PFO, s/p PFO closure with no remaining shunt on echo. 3. Polysubstance abuse including ETOH. Clear to be discharged from the cards standpoint. Subjective Subjective Transferred to the med-surg unit. No e/o cardiac arrhythmias ever since arrival to the hospital. Objective Last 24 Hour Vital Signs Date Time Temp Pulse Resp B/P (MAP) Pulse Ox O2 Delivery O2 Flow Rate FiO2 10/09/18 16:00 98.6 97 18 123/81 (95) 99 10/09/18 12:00 98.6 95 18 115/86 (96) 99 10/09/18 09:00 Room Air 10/09/18 08:00 97.4 101 18 127/81 (96) 100 10/09/18 04:00 97.7 94 18 116/76 (89) 98 10/09/18 00:00 97.7 97 18 97/51 (66) 98 10/08/18 21:00 Room Air 10/08/18 20:00 98.2 99 18 124/74 (91) 99 Intake and Output 10/08/18 10/09/18 19:00 07:00 Intake Total 840 ml 350 ml Balance 840 ml 350 ml Intake Oral 840 ml 350 ml # Voids 5 2 2D Echo: LVEF 55%, Mild LVH, atrial closure device evident, RVSP 22 mmHg Objective HEENT: Atraumatic and normocephalic, PERRLA, EOMI. NECK: NO JVD, no carotid bruit. CHEST: Clear to auscultation. HEART: S1 and S2. Regular rate and rhythm, no murmurs, gallops or rubs. ABDOMEN: Soft, non-tender, non-distended, + BS. MUSCULOSKELETAL: RUE weakness and flexion contraction, no edema, clubbing or cyanosis. NEUROLOGIC: Awake, alert, and oriented x3. Shekhar Jones MD Oct 09, 2018 18:42
--- NOTE | 2018-10-09 19:51 | NUR ---
HAND-OFF: Report given to HELEN More.
[2018-10-09] MEDS ORDERED: 1/2 NS 1000ml IV ONE (20:19)
--- NOTE | 2018-10-09 21:00 | NUR ---
NURSE NOTES: Patient discharged. All belongings accounted for. IV discontinued. ID band removed.
--- NOTE | 2018-10-09 21:45 | Consultation ---
DATE OF CONSULTATION: 10/07/2018 CARDIOLOGY CONSULTATION CONSULTING PHYSICIAN: Shekhar Jones M.D. REFERRING PHYSICIAN: Andrés Sánchez M.D. REASON FOR CONSULTATION: Management of chest pain. HISTORY OF PRESENT ILLNESS: The patient is a very unfortunate 28-year-old lady, who presents to the hospital with chest pain, experienced as palpitations as well as chest pressure that started on the morning of 10/07/2018. Each episode lasting for about a few seconds. The patient denies any shortness of breath. She states that she is here in [place] for alcohol rehabilitation. The patient has history of anxiety. Her cardiovascular history is significant for history of cerebrovascular accident that was caused by a patent foramen ovale, which was closed using percutaneous closure device most likely Amplatzer. This was done at [facility]. There is no history of coronary artery disease or valvular disease. At the time of arrival to the hospital, blood pressure was 113/85 mmHg and pulse of 94. The patient was admitted to telemetry for further evaluation and management of palpitation and chest pain. PAST MEDICAL HISTORY: 1. CVA due to PFO. 2. Patent foramen ovale status post Amplatzer closure device placed. 3. History of seizures. 4. History of psych disorder. 5. History of eating disorder. 6. History of alcohol abuse. PAST SURGICAL HISTORY: Status post Amplatzer closure device for PFO. LIST OF MEDICATIONS: 1. Abilify 10 mg p.o. daily. 2. Aspirin 81 mg p.o. daily. 3. BuSpar 10 mg p.o. 3 times a day. 4. Folic acid 1 mg p.o. daily. 5. Vistaril 25 mg p.r.n. for anxiety. 6. Keppra 1000 mg p.o. twice daily. 7. Melatonin 6 mg p.o. at bedtime. 8. Zoloft 200 mg p.o. daily. 9. Trazodone 100 mg p.o. at bedtime. ALLERGIES: Allergic to sulfamethoxazole, trimethoprim, and Bactrim. SOCIAL HISTORY: Current tobacco use. Had some prior use of methamphetamines and also positive for alcohol abuse. FAMILY HISTORY: No premature coronary artery disease in the first-degree relatives. REVIEW OF SYSTEMS: A 12-system review done essentially negative except what was mentioned in the history of present illness. PHYSICAL EXAMINATION: VITAL SIGNS: At the time of arrival to the hospital, blood pressure was 113/85, respirations of 18, pulse of 94, temperature 98.2 degrees Fahrenheit, and O2 saturation 96% on room air. GENERAL: This is a very unfortunate 28-year-old lady, who is seen in Cardiology consultation. HEENT: Atraumatic and normocephalic. Anicteric. Pupils are equal, round, and reactive to light and accommodation. Extraocular muscles intact. NECK: JVP less than 5 cm. No carotid bruit. Carotid upstrokes 2+ bilaterally. CVS: Normal S1, S2. Regular rate and rhythm. No murmurs, gallops, or rubs. PMI is at fourth intercostal space in the midclavicular line. LUNGS: Clear to auscultation bilaterally. EXTREMITIES: Contraction in the right upper extremity due to prior stroke. Otherwise, no edema, clubbing, or cyanosis. IMAGING: Chest x-ray shows cardiomegaly with mainly right atrial enlargement with no acute cardiopulmonary disease. LABORATORY FINDINGS: WBC of 7.6, hemoglobin 14.0, hematocrit 41.9, and platelet count is 357,000. Sodium 140, potassium is 3.8, chloride 102, bicarbonate 29, BUN of 15, creatinine 0.7, glucose is 88, and calcium 9.3. Troponin I x2 negative. Troponin I is 0.029. Toxicology in the urine was negative. ASSESSMENT AND PLAN: This is a very unfortunate 28-year-old female, who is seen in Cardiology consultation at the request of Dr. Sánchez. 1. Most likely, atypical chest pain. This could be secondary to underlying palpitation. Ever since her arrival to the hospital, there has been no cardiac arrhythmias. 2. We will continue to monitor the patient's rhythm for 24 hours. 3. It maybe that the patient requires an outpatient electronic device monitor for about 2 weeks. 4. A 2D echocardiography will be done to assess LV systolic and diastolic function to evaluate atrial septal wall in view of prior history of PFO closure. 5. History of cerebrovascular accident due to PFO status post closure. 6. History of seizure disorder probably due to alcohol withdrawal syndrome. 7. Polysubstance abuse including tobacco, methamphetamine, and alcohol. I would like to thank, Dr. Sánchez, for allowing me to participate in the care of this patient. Shekhar Jones M.D. DR: ADELIA JOB#: [id number] CC:
[2018-10-10] MEDS ORDERED: Sertraline 100mg tab ORAL SCH (09:00)
--- NOTE | 2018-10-11 12:16 | Discharge Summary ---
Discharge Summary Discharge Summary _ DATE OF ADMISSION: 10/07/2018 DATE OF DISCHARGE: 10/09/2018 DISCHARGED BY: Dr. Sánchez REASON FOR ADMISSION: 28 years old female with past medical history of seizure disorder, psychiatric history , CVA due to patent foramen ovale , status post closure, , alcohol tobacco and amphetamine abuse, anxiety disorder, presented to emergency room for evaluation of chest pain and palpitations. Upon evaluation vital signs were stable. Patient reported heart racing along with chest pressure, lasting few seconds. She denied shortness of breath . Patient reported being in [place] alcohol rehabilitation program. Laboratory workup revealed no leukocytosis, stable hemoglobin and hematocrit. Urinalysis revealed no evidence of UTI. Urine test was negative. Chemistry was stable. Troponin was negative. EKG revealed sinus rhythm , no acute ischemic changes ecology . Urine toxicology screen was negative. Chest x-ray revealed no acute cardiopulmonary pathology. Patient admitted for further management. CONSULTANTS: seismic computer Dr. Jones psychiatrist [facility]: Patient admitted to telemetry floor. Serial troponin were negative. EKG revealed no acute ischemic changes. Patient was ruled out for acute DC. Lipid panel was stable. TSH was within normal limits. Echocardiogram revealed preserved ejection fraction of 55%. No evidence of wall motion abnormality. Mild left ventricular hypertrophy. Right ventricular systolic pressure of 22. Criminal Justice Instructor closely followed. Per cardiology, chest pain was most likely atypical , likely secondary to underlying palpitation due to anxiety disorder. There was no cardiac arrhythmia on telemetry. Patient may need benefit from outpatient cardiac monitoring for 2 weeks. Antiplatelet therapy with aspirin continued. Seizure precautions were maintained . Keppra continued. Patient with history of polysubstance abuse ,including tobacco ,amphetamine and alcohol. Patient was counseled on abstinence from [address] drug and alcohol. Patient was counseled on tobacco cessation. Patient was started on Nicotine patch. DVT and GI prophylaxis provided. Bowel regimen instituted. Psychiatrist followed and diagnosed patient with major depressive disorder and anxiety disorder. Patient started on psychiatric medication regimen . Reality orientation and supportive therapy provided. Bowel regimen instituted. Patient clinically stabilized and was ready for discharge home FINAL DIAGNOSES: Atypical chest pain likely due to palpitations secondary to anxiety disorder History of CVA due to patent foramen ovale, status post closure Seizure disorder possibly due to alcohol withdrawal syndrome Polysubstance abuse , including tobacco, methamphetamine and alcohol Major depressive disorder Anxiety disorder DISCHARGE MEDICATIONS: See Medication Reconciliation list. DISCHARGE INSTRUCTIONS: Patient was discharged home . Follow up with primary care provider in one week. I have been assigned to dictate discharge summary for this account. I was not involved in the patient's management. Martha Davila NP Oct 11, 2018 12:16
--- NOTE | 2018-10-22 14:38 | Cardiology Report ---
APPROVED REPORT EKG Measurement Heart [id number] Normal sinus rhythm Rightward axis Borderline ECG
--- NOTE | 2018-10-23 09:12 | Cardiology Report ---
APPROVED REPORT EXAM: Two-dimensional and M-mode echocardiogram with Doppler and color Doppler. INDICATION Chest Pain M-Mode DIMENSIONS IVSd0.6 (0.7-1.1cm)Left Atrium (MM)2.7 (1.6-4.0cm) LVDd3.2 (3.5-5.6cm)Aortic Root3.7 (2.0-3.7cm) PWd1.0 (0.7-1.1cm)Aortic Cusp Exc.1.9 (1.5-2.0cm) LVDs2.4 (2.5-4.0cm) PWs1.0 cm Normal left ventricular chamber size, systolic function and wall motion. Left ventricular ejection fraction estimated to be 55 %. No evidence of pericardial effusion. Mild left ventricular hypertrophy by 2-D. All other cardiac chamber sizes are within normal limits. Mild focal aortic valve sclerosis with adequate cusp excursion. MIldly thickened mitral valve leaflets with normal excursion. Mild mitral annulus and aortic root calcification. Pulmonic valve not well visualized. Normal tricuspid valve structure. IVC measured at 1.9 cm with physiologic collapse. A color flow and spectral Doppler study was performed and revealed No aortic regurgitation. Trace mitral regurgitation. Mitral diastolic velocities suggest reduced left ventricular relaxation c/w impaired relaxation grade one diastolic dysfunction. Trace tricuspid regurgitation. Tricuspid systolic velocities suggests peak right ventricular systolic pressure of 22 mmHg. Pulmonic regurgitation present.
== END 2018-10-09 20:20 | disposition home or self-care (01) | DRG 313 ==
LOC: EMR 13:30 → 2E 14:33 → EDBEDREQ 15:50 → 4E 10-08 11:29
DX: R07.89 Other chest pain (principal); G40.89 Other seizures; I69.351 Hemiplegia and hemiparesis following cerebral infarction affecting right dominant side; F10.288 Alcohol dependence with other alcohol-induced disorder; R00.2 Palpitations; F41.9 Anxiety disorder, unspecified; Z87.74 Personal history of (corrected) congenital malformations of heart and circulatory system; F19.10 Other psychoactive substance abuse, uncomplicated; F32.9 Major depressive disorder, single episode, unspecified; Z88.2 Allergy status to sulfonamides; Z88.8 Allergy status to other drugs, medicaments and biological substances; F50.9 Eating disorder, unspecified; F17.200 Nicotine dependence, unspecified, uncomplicated; Z68.20 Body mass index [BMI] 20.0-20.9, adult
CPT/HCPCS: 36415; 71045; 80048; 80053; 80061; 80299; 80307; 81003; 81025; 82550; 82553; 83036; 84443; 84484; 85025; 93005; 93306; 96360; 99285